=== PATIENT | male | born 1980 | race American Indian/Alaskan Native ===

== ENCOUNTER 2016-07-18 08:53 | Emergency (ER) | payer MEDICARE ==
[2016-07-18 11:31] LABS: Eosinophils % (Auto) 5.6 % (0.0-4.3); Hemoglobin 12.6 gm/dl (11.8-15.2); Mean Corpuscular HGB Conc 32 % (32-34); Mean Corpuscular Hemoglobin 31 pg (28-32); Mean Corpuscular Volume 97 fl (84-94); Platelet Count 243 K/mm3 (140-440); Red Blood Count 4.12 M/mm3 (3.65-5.03); Red Cell Distribution Width 18.9 % (13.2-15.2); White Blood Count 7.7 K/mm3 (4.5-11.0)
[2016-07-18 11:52] LABS: INR 3.56 (0.87-1.13)
--- NOTE | 2016-07-18 12:46 | Emergency Department Report ---
ED ENT HPI - General Chief complaint: Dental/Oral Stated complaint: LT SIDE MOUTH CUT / NON STOP BLEEDING Time Seen by Provider: 07/18/16 10:59 Source: patient Mode of arrival: Ambulatory Limitations: No Limitations - History of Present Illness Initial comments: PT states he has a wisdom tooth that is supposed to be removed tomorrow. PT states for the last three nights, he has woken up with bleeding gum. PT states he thinks his wisdom tooth may have cut his mouth. PT states he is on ASA, Plavix and coumadin. PT states today his gum bleed for 5 hours before it stopped. MD complaint: trauma/injury -: Gradual Location: other 1 - wisdom tooth that needs to be removed Severity scale (0 -10): 0 Improves with: pressure Associated Symptoms: toothache. denies: fever, gum swelling - Related Data Home Medications Medication Instructions Recorded Confirmed Last Taken Aspirin EC [Aspirin Enteric Coated 81 mg PO DAILY 09/15/15 09/15/15 09/14/15 TAB] 81mg Atorvastatin Calcium [Lipitor] 20 mg PO DAILY 09/15/15 09/15/15 09/14/15 20mg Cinacalcet [Sensipar] 30 mg PO DAILY 09/15/15 09/15/15 09/14/15 30mg Gabapentin [Neurontin] 300 mg PO DAILY 09/15/15 09/15/15 09/14/15 300mg ISOSORBIDE MONOnitrate [Imdur ER] 30 mg PO DAILY 09/15/15 09/15/15 09/14/15 30mg Insulin Aspart [NovoLOG 100 15 units SC AC 09/15/15 09/15/15 09/14/15 UNITS/ML VIAL] 15units Insulin Detemir [Levemir VIAL] 15 units SC BID 09/15/15 09/15/15 09/14/15 15units Metoprolol Xl [Metoprolol 25 mg PO BID 09/15/15 09/15/15 09/14/15 SUCCINATE ER TAB] 25mg Prasugrel [Effient] 10 mg PO DAILY 07/09/15/15 09/15/15 06:37 10mg Vitamin B Comp and C/FA/Zn Cit 1 tab PO DAILY 09/15/15 09/15/15 09/14/15 [Dialyvite 800-Zinc 15 mg Tab] 1 Allergies Allergy/AdvReac Type Severity Reaction Status Date / Time No Known Allergies Allergy Verified 09/15/15 05:57 ED Dental HPI - General Chief complaint: Dental/Oral Stated complaint: LT SIDE MOUTH CUT / NON STOP BLEEDING Time Seen by Provider: 07/18/16 10:59 Source: patient Mode of arrival: Ambulatory Limitations: No Limitations - Related Data Home Medications Medication Instructions Recorded Confirmed Last Taken Aspirin EC [Aspirin Enteric Coated 81 mg PO DAILY 09/15/15 09/15/15 09/14/15 TAB] 81mg Atorvastatin Calcium [Lipitor] 20 mg PO DAILY 09/15/15 09/15/15 09/14/15 20mg Cinacalcet [Sensipar] 30 mg PO DAILY 09/15/15 09/15/15 09/14/15 30mg Gabapentin [Neurontin] 300 mg PO DAILY 09/15/15 09/15/15 09/14/15 300mg ISOSORBIDE MONOnitrate [Imdur ER] 30 mg PO DAILY 09/15/15 09/15/15 09/14/15 30mg Insulin Aspart [NovoLOG 100 15 units SC AC 09/15/15 09/15/15 09/14/15 UNITS/ML VIAL] 15units Insulin Detemir [Levemir VIAL] 15 units SC BID 09/15/15 09/15/15 09/14/15 15units Metoprolol Xl [Metoprolol 25 mg PO BID 09/15/15 09/15/15 09/14/15 SUCCINATE ER TAB] 25mg Prasugrel [Effient] 10 mg PO DAILY 09/15/15 09/15/15 09/15/15 06:37 10mg Vitamin B Comp and C/FA/Zn Cit 1 tab PO DAILY 09/15/15 09/15/15 09/14/15 [Dialyvite 800-Zinc 15 mg Tab] 1 Allergies Allergy/AdvReac Type Severity Reaction Status Date / Time No Known Allergies Allergy Verified 09/15/15 05:57 ED Review of Systems ROS: Stated complaint: LT SIDE MOUTH CUT / NON STOP BLEEDING Other details as noted in HPI Comment: All other systems reviewed and negative Respiratory: denies: cough Cardiovascular: denies: chest pain Gastrointestinal: denies: hematemesis, melena, hematochezia Genitourinary: denies: hematuria Hematological/Lymphatic: easy bleeding ED Past Medical Hx - Past Medical History Previous Medical History?: Yes Hx Hypertension: Yes Hx Heart Attack/AMI: Yes Hx Congestive Heart Failure: No Hx Diabetes: Yes (Type 1 diabetes) Hx Renal Disease: Yes Hx Asthma: No Hx COPD: No Hx HIV: No Additional medical history: diaylsis m,w,f - Surgical History Past Surgical History?: Yes Hx Coronary Stent: Yes Hx Cholecystectomy: Yes (2010) Additional Surgical History: perma cath to left chest wall - Social History Smoking Status: Never Smoker Substance Use Type: None - Medications Home Medications: Home Medications Medication Instructions Recorded Confirmed Last Taken Type Aspirin EC [Aspirin Enteric Coated 81 mg PO DAILY 09/15/15 09/15/15 09/14/15 History TAB] 81mg Atorvastatin Calcium [Lipitor] 20 mg PO DAILY 09/15/15 09/15/15 09/14/15 History 20mg Cinacalcet [Sensipar] 30 mg PO DAILY 09/15/15 09/15/15 09/14/15 History 30mg Gabapentin [Neurontin] 300 mg PO DAILY 09/15/15 09/15/15 09/14/15 History 300mg ISOSORBIDE MONOnitrate [Imdur ER] 30 mg PO DAILY 09/15/15 09/15/15 09/14/15 History 30mg Insulin Aspart [NovoLOG 100 15 units SC AC 09/15/15 09/15/15 09/14/15 History UNITS/ML VIAL] 15units Insulin Detemir [Levemir VIAL] 15 units SC BID 09/15/15 09/15/15 09/14/15 History 15units Metoprolol Xl [Metoprolol 25 mg PO BID 09/15/15 09/15/15 09/14/15 History SUCCINATE ER TAB] 25mg Prasugrel [Effient] 10 mg PO DAILY 09/15/15 09/15/15 09/15/15 06:37 History 10mg Vitamin B Comp and C/FA/Zn Cit 1 tab PO DAILY 07/19/16 07/19/16 07/18/16 History [Dialyvite 800-Zinc 15 mg Tab] 1 ED Physical Exam - General Limitations: No Limitations General appearance: alert, in no apparent distress - Head Head exam: Present: atraumatic, normocephalic - Eye Eye exam: Present: normal appearance. Absent: conjunctival injection - ENT ENT exam: Present: mucous membranes moist, normal external ear exam - Expanded ENT Exam Expanded Teeth exam: Present: other (tooth # 18 not seen, blood clot over gum at site of tooth, no active bleeding. no intraoral laceration ) - Neck Neck exam: Present: normal inspection, full ROM - Respiratory Respiratory exam: Present: other (vascular access to R chest wall ). Absent: respiratory distress, chest wall tenderness - Cardiovascular Cardiovascular Exam: Present: regular rate, normal rhythm - Rectal Rectal exam: Present: deferred - Extremities Exam Extremities exam: Present: normal inspection, full ROM - Back Exam Back exam: Present: normal inspection, full ROM - Neurological Exam Neurological exam: Present: alert, oriented X3 - Psychiatric Psychiatric exam: Present: normal affect, normal mood - Skin Skin exam: Present: warm, dry, intact, normal color ED Course Vital Signs 07/18/16 08:57 Temperature 98.5 F Pulse Rate 88 Respiratory 16 Rate Blood Pressure 138/51 O2 Sat by Pulse 98 Oximetry - Reevaluation(s) Reevaluation #1: 07/18/16 12:49 PT aware of lab results. PT states he was supposed to stop his Coumadin last night but he remembered after he took his evening dose. PT aware he will need to notify his dentist who is scheduled to remove his tooth tomorrow. PT aware he will need to hold his coumadin for 48 hours and recheck caogs prior to having procedure done. PT verbalizes understanding. Reviewed pt with Dr Junior, who agress with plan of care, pt does not meet requirements for reversal of anticoagulation - Pulse Oximetry Interpretation Digit-Finger Initial Pulse Oximetry Readin Actions Taken: none ED Medical Decision Making - Lab Data Result diagrams: 07/18/16 11:11 Lab Results 07/18/16 07/18/16 Range/Units 11:11 11:11 WBC 7.7 (4.5-11.0) K/mm3 RBC 4.12 (3.65-5.03) M/mm3 Hgb 12.6 (11.8-15.2) gm/dl Hct 40.0 (35.5-45.6) % MCV 97 H (84-94) fl MCH 31 (28-32) pg MCHC 32 (32-34) % RDW 18.9 H (13.2-15.2) % Plt Count 243 (140-440) K/mm3 Lymph % (Auto) 19.0 (13.4-35.0) % [place] % (Auto) 4.9 (0.0-7.3) % Eos % (Auto) 5.6 H (0.0-4.3) % Baso % (Auto) 1.0 (0.0-1.8) % Lymph # 1.5 (1.2-5.4) K/mm3 [place] # 0.4 (0.0-0.8) K/mm3 Eos # 0.4 (0.0-0.4) K/mm3 Baso # 0.1 (0.0-0.1) K/mm3 Seg Neutrophils % 69.5 (40.0-70.0) % Seg Neutrophils # 5.3 (1.8-7.7) K/mm3 PT 35.9 H (12.2-14.9) Sec. INR 3.56 H (0.87-1.13) APTT 67.0 H* (24.2-36.6) Sec. - Differential Diagnosis anemia, laceration, supratherapeutic inr Critical Care Time: No Critical care attestation.: If time is entered above; I have spent that time in minutes in the direct care of this critically ill patient, excluding procedure time. ED Disposition Clinical Impression: Anticoagulated on Coumadin, History of oral hemorrhage Disposition: DISCHARGED TO HOME OR SELFCARE Is pt being admited?: No Does the pt Need Aspirin: No Condition: Stable Instructions: Warfarin (By mouth) Additional Instructions: Hold your Coumadin for 48 hours, then have your Coumadin level rechecked Call your Dentist and let them know that you took your dose of coumadin last night. Referrals: RAS HURST MD [Primary Care Provider] - 3-5 Days Time of Disposition: 12:57
[2016-07-18 13:09] VITALS: BP 134/54
== END 2016-07-18 13:07 | disposition home or self-care (01) ==
LOC: ED 08:53
DX: R79.1 Abnormal coagulation profile (principal); K06.8 Other specified disorders of gingiva and edentulous alveolar ridge; I10 Essential (primary) hypertension; E10.9 Type 1 diabetes mellitus without complications; N28.9 Disorder of kidney and ureter, unspecified; I50.9 Heart failure, unspecified; Z79.82 Long term (current) use of aspirin
CPT/HCPCS: 36415; 85025; 85610; 85730; 99283

== ENCOUNTER 2016-08-21 16:17 | Emergency (ER) | payer MEDICARE ==
[2016-08-21 17:15] LABS: Hematocrit 35.8 % (35.5-45.6); Hemoglobin 11.7 gm/dl (11.8-15.2); Mean Corpuscular HGB Conc 33 % (32-34); Mean Corpuscular Hemoglobin 31 pg (28-32); Mean Corpuscular Volume 93 fl (84-94); Platelet Count 329 K/mm3 (140-440); Red Blood Count 3.84 M/mm3 (3.65-5.03); Red Cell Distribution Width 19.1 % (13.2-15.2); White Blood Count 6.2 K/mm3 (4.5-11.0)
[2016-08-21 17:24] LABS: INR 4.51 (0.87-1.13)
[2016-08-21 17:31] LABS: Partial Thromboplastin Time 83.4 Sec. (24.2-36.6)
[2016-08-21 17:38] LABS: BUN/Creatinine Ratio 4.41; Calcium 9.7 mg/dL (8.4-10.2); Chloride 95.2 mmol/L (98-107); Potassium 4.9 mmol/L (3.6-5.0)
--- NOTE | 2016-08-21 21:34 | Emergency Department Report ---
HPI - General Chief Complaint: Wound/Laceration Time Seen by Provider: 08/21/16 21:25 - HPI HPI: Patient is a 36-year-old male currently taking Coumadin and Plavix daily for the past 1-2 months due to a heart stent currently presents to ED for bleeding from a wound 1 day. Patient states he took of the scalp of his right palm last night and it started bleeding uncontrollably to today. The patient states bleeding decreased today. He denies bleeding from any other system. He denies fevers/chills nausea vomiting. ED Past Medical Hx - Past Medical History Hx Hypertension: Yes Hx Heart Attack/AMI: Yes Hx Congestive Heart Failure: No Hx Diabetes: Yes (Type 1 diabetes) Hx Renal Disease: Yes Hx Asthma: No Hx COPD: No Hx HIV: No Additional medical history: diaylsis m,w,f - Surgical History Hx Coronary Stent: Yes Hx Cholecystectomy: Yes (2010) Additional Surgical History: perma cath to left chest wall - Social History Smoking Status: Never Smoker Substance Use Type: None - Medications Home Medications: Home Medications Medication Instructions Recorded Confirmed Last Taken Type Aspirin EC [Aspirin Enteric Coated 81 mg PO DAILY 09/15/15 09/15/15 09/14/15 History TAB] 81mg Atorvastatin Calcium [Lipitor] 20 mg PO DAILY 09/15/15 09/15/15 09/14/15 History 20mg Cinacalcet [Sensipar] 30 mg PO DAILY 09/15/15 09/15/15 09/14/15 History 30mg Gabapentin [Neurontin] 300 mg PO DAILY 09/15/15 09/15/15 09/14/15 History 300mg ISOSORBIDE MONOnitrate [Imdur ER] 30 mg PO DAILY 09/15/15 09/15/15 09/14/15 History 30mg Insulin Aspart [NovoLOG 100 15 units SC AC 09/15/15 09/15/15 09/14/15 History UNITS/ML VIAL] 15units Insulin Detemir [Levemir VIAL] 15 units SC BID 09/15/15 09/15/15 09/14/15 History 15units Metoprolol Xl [Metoprolol 25 mg PO BID 09/15/15 09/15/15 09/14/15 History SUCCINATE ER TAB] 25mg Prasugrel [Effient] 10 mg PO DAILY 07/09/15/15 09/15/15 06:37 History 10mg Vitamin B Comp and C/FA/Zn Cit 1 tab PO DAILY 09/15/15 09/15/15 09/14/15 History [Dialyvite 800-Zinc 15 mg Tab] 1 ED Review of Systems ROS: Stated complaint: FALL/HAND INJURY Other details as noted in HPI Constitutional: denies: chills, fever Eyes: denies: eye pain, eye discharge, vision change ENT: denies: ear pain, throat pain Respiratory: denies: cough, shortness of breath, wheezing Cardiovascular: denies: chest pain, palpitations Endocrine: no symptoms reported Gastrointestinal: denies: abdominal pain, nausea, diarrhea Genitourinary: denies: urgency, dysuria Musculoskeletal: denies: back pain, joint swelling, arthralgia Skin: denies: rash, lesions Neurological: denies: headache, weakness, paresthesias Psychiatric: denies: anxiety, depression Hematological/Lymphatic: denies: easy bleeding, easy bruising Physical Exam - Physical Exam Vital Signs: Vital Signs 08/21/16 16:26 Temperature 97.7 F Pulse Rate 90 Respiratory 16 Rate Blood Pressure 112/45 O2 Sat by Pulse 100 Oximetry Physical Exam: GENERAL: Alert and oriented x3, no apparent distress, Normal Gait, atraumatic. HEAD: Head is normocephalic and a-traumatic. EYES: Extra ocular muscles are intact. Pupils are equal, round, and reactive to light and accommodation. EARS: symetrical, atraumatic, non tender, ear canal clear and moderate cerumen, tympanic membrance non inflamed. gross auditory nml bilaterally. NOSE: Nose symetrical, Nontender,Nares appeared normal LUNGS: Symetrical with respiration, No wheezing, no rales or crackles, CTAB. HEART: S1, S2 present, regular rate and rhythm without murmur, no rubs, no gallops. Non tender to palpation SKIN: Warm and dry, moderately healed scar is generalized on hands, No other lesions, No ulceration or induration present. No bleeding present. Scab cleaned and pressure dressing applied ED Course Vital Signs 08/21/16 16:26 Temperature 97.7 F Pulse Rate 90 Respiratory 16 Rate Blood Pressure 112/45 O2 Sat by Pulse 100 Oximetry ED Medical Decision Making - Lab Data Result diagrams: 08/21/16 16:48 08/21/16 16:48 - Medical Decision Making 36-year-old male presents for wound check for bleeding ED course: CBC, BMP, coag studies collected in ED. Coag studies elevated. Discussed case with attending Dr. Beasley who reccomends the patient to stop taking his Coumadin for the next 2 days to he sees his physician. Discussed with patient to stop taking his Coumadin for the next 2 days until he follows up with his physician on Monday. Discussed the monitor wound for any new episodes of bleeding. Discussed with the patient that If bleeding continues or is when his symptoms worse since to return to ED. Patient sent instructions given and states he will comply and follow up with this doctor. Patient is in no acute distress his vital signs are stable. Critical care attestation.: If time is entered above; I have spent that time in minutes in the direct care of this critically ill patient, excluding procedure time. ED Disposition Clinical Impression: Visit for wound check Disposition: TO HOME OR SELFCARE Is pt being admited?: No Does the pt Need Aspirin: No Condition: Stable Instructions: Acute Wound Care (ED) Additional Instructions: Stop your Coumadin daily until follow-up with your primary-care physician on Monday. X-ray follow-up with your primary-care physician at [facility]. If any bleeding continues return to ED. Referrals: RAS HURST MD [Primary Care Provider] - 3-5 Days Forms: Work/School Release Form(ED) Time of Disposition: 22:27
[2016-08-21 22:37] VITALS: BP 116/82
== END 2016-08-21 22:37 | disposition home or self-care (01) ==
LOC: ED 16:17
DX: L76.21 Postprocedural hemorrhage of skin and subcutaneous tissue following a dermatologic procedure (principal); I10 Essential (primary) hypertension; I25.2 Old myocardial infarction; E10.9 Type 1 diabetes mellitus without complications; Z95.1 Presence of aortocoronary bypass graft; Z90.49 Acquired absence of other specified parts of digestive tract; Z79.82 Long term (current) use of aspirin; Z79.4 Long term (current) use of insulin
CPT/HCPCS: 36415; 80048; 85027; 85610; 85730; 99283